=== PATIENT | female | born 1970 | race Caucasian/White ===

== ENCOUNTER 2018-11-13 22:41 | Observation (INO) ==
[2018-11-13] MEDS ORDERED: Isovue-370 500 ML INFUS..BTL IV ONE (23:59)
[2018-11-14] MEDS ORDERED: Ondansetron 4 MG/2 ML VIAL IVP STA (00:05)
[2018-11-14] MEDS ORDERED: *HR* Morphine 2 MG/ML SYRINGE IVP STA (00:05)
[2018-11-14 00:33] LABS: Bilirubin,Urine Negative (Negative); Blood,Urine Negative (Negative); Clarity,Urine Clear (Clear); Color,Urine Yellow (Yellow); Glucose,Urine (UA) Normal (Normal); Ketones,Urine Negative (Negative); Leukocyte Esterase,Urine Negative (Negative); Nitrite,Urine Negative (Negative); Protein,Urine 100 mg/dL (Neg-Trace); Specific Gravity,Urine < 1.005 (1.010-1.025); Urobilinogen,Urine Normal (Normal)
[2018-11-14 00:35] LABS: Bacteria,Urine None Seen per hpf (None-Few); Hyaline Casts,Urine None Seen per lpf (None-Few); RBC,Urine 0-3 per hpf (0-3); Squamous Epithelial Cell,Urine Moderate per lpf (None-Few); WBC,Urine 0-3 per hpf (0-3)
[2018-11-14 01:01] LABS: Troponin I < 0.03 ng/mL (< 0.04)
[2018-11-14 01:02] LABS: Alanine Aminotransferase 16 Units/L (7-52); Albumin 3.9 g/dL (3.5-5.7); Albumin/Globulin Ratio 1.4 (1.1-2.2); Alkaline Phosphatase 114 Units/L (34-104); Aspartate Amino Transferase 19 Units/L (13-39); BUN/Creatinine Ratio 12 (6-26); Bilirubin,Direct 0.2 mg/dL (0.0-0.2); Bilirubin,Indirect 0.3 mg/dL (0.0-1.2); Bilirubin,Total 0.5 mg/dL (0.3-1.0); Blood Urea Nitrogen 12 mg/dL (6-20); Carbon Dioxide 24 mEq/L (23-29); Chloride 103 mEq/L (98-107); Globulin 2.8 g/dL (2.4-3.5); Glucose 115 mg/dL (70-105); Lipase 26 Units/L (11-82); Osmolality,Calculated 283 (280-300); Potassium 3.9 mEq/L (3.5-5.1); Sodium 136 mEq/L (136-145); Total Protein 6.7 g/dL (6.4-8.9); eGFR For Non-African Americans 58 (> 60)
[2018-11-14 01:17] LABS: Basophils # 0.1 K/mcL (0.0-0.2); Basophils % 0.6 %; Eosinophils # 0.2 K/mcL (0.0-0.6); Eosinophils % 2.1 %; Hematocrit 43.6 % (35.3-44.9); Hemoglobin 13.1 g/dL (11.5-15.4); Immature Granulocytes % 0.3 % (0-4); Lymphocytes # 2.8 K/mcL (0.6-4.6); Lymphocytes % 29.3 %; Mean Corpuscular Hemoglobin 27.2 pg (28.0-33.3); Mean Corpuscular Volume 90.6 fL (83.0-100.0); Mean Platelet Volume 10.6 fL (9.4-12.4); Monocytes # 0.9 K/mcL (0.0-1.3); Monocytes % 9.4 %; Neutrophils # 5.5 K/mcL (1.6-8.9); Platelet Count 347 K/mcL (140-400); Red Blood Count 4.81 M/mcL (3.82-4.97); Red Cell Distribution Width 16.1 % (11.5-14.5); Segmented Neutrophils % 58.3 %
[2018-11-14] MEDS ORDERED: Furosemide 40 MG/4 ML VIAL IVP ONE (02:42)
--- NOTE | 2018-11-14 03:12 | Emergency Department Note ---
Disposition Clinical Impression: Elevated brain natriuretic peptide (BNP) level, Dyspnea on exertion, New onset of congestive heart failure Fluid overload Qualifiers: Hypervolemia type: unspecified Qualified Code(s): E87.70 - Fluid overload, unspecified Fatigue Qualifiers: Fatigue type: unspecified Qualified Code(s): R53.83 - Other fatigue Hypothyroidism Qualifiers: Hypothyroidism type: unspecified Qualified Code(s): E03.9 - Hypothyroidism, unspecified Disposition: Admitted As Inpatient Condition: Good Referrals: NONE,PCP [Primary Care Provider] - Forms: ED Satisfaction Letter, Work/School Release General Adult HPI - General Chief complaint: ED Abdominal Pain Stated complaint: abdominal pain/swelling Time Seen by Provider: 11/13/18 23:54 Source: patient Limitations: no limitations Nursing Notes Reviewed: Yes Vital Signs Reviewed: Yes - History of Present Illness HPI Narrative: Patient presents to the emergency department for multiple complaints. Most significant complaint is swelling in the lower extremities as well as the abdomen causing her to have pain of both these sites. Patient states that she started having problems proximal my 2 weeks ago when she was having upper respiratory symptoms diagnosed sinus infection and started on antibiotics. Patient states that she has increased swelling in her legs was started on Lasix by her PCP. No previous history of congestive heart failure or cardiac history. The patient states that she started having worsening fatigue as well as shortness of breath with exertion. On exam she has generalized abdominal tenderness as well as some mild distention with associated +2 pitting edema up to the bellybutton. Post 2 pitting edema throughout the legs. Patient will undergo further evaluation for possible CHF versus abdominal component. Pain Scale: 8 - Related Data Home Medications Medication Instructions Recorded Confirmed Levothyroxine Sodium [Synthroid] 200 mcg PO DAILY 08/04/18 08/04/18 metFORMIN [Glucophage] 1,000 mg PO HS 08/04/18 08/04/18 Previous Rx's Medication Instructions Recorded Albuterol Sulfate [Albuterol 2 puff IH Q4HR PRN #1 [email or web address] 08/04/18 Inhaler] Doxycycline 100 mg PO BID #13 capsule 08/04/18 Allergies Allergy/AdvReac Type Severity Reaction Status Date / Time levofloxacin [From Levaquin] AdvReac Muscle Pain Verified 08/04/18 19:29 All systems ED: reviewed and negative except as stated. Review of Systems: As Per HPI Constitutional: Denies: fever, chills ENT ED: Reports: congestion Cardiovascular: Reports: dyspnea on exertion. Denies: chest pain, palpitations Respiratory: Reports: dyspnea. Denies: cough, wheezes Gastrointestinal: Reports: abdominal pain, nausea. 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 No rebound or guarding. Musculoskeletal: Calves symmetric, nontender Skin: No rash, normal skin tone Neuro: Alert and Oriented to person, place, and time; No focal deficit, CN 2-12 symmetric and intact - General Limitations: no limitations General appearance: alert, in no apparent distress Course - Reevaluation(s) Reevaluation #1: Patient CT scan with abnormal lymph node of uncertain clinical significance and no other significant intra-abdominal pathology. The patient does not have any sign of ascites. Elevated BNP. Given the fact that she has swelling is been progressive from the lower extremities now since the abdomen as well as a elevated BNP and signs of vascular congestion on chest x-ray patient will be given Lasix and admitted for workup for possible new-onset CHF. - Consultations Consultation #1: Discussed with hospitalist. Patient accepted for admission. Vital Signs Temperature 98.4 F 11/13/18 23:16 Pulse Rate 103 11/13/18 23:16 Respiratory Rate 18 11/13/18 23:16 Blood Pressure 161/111 11/13/18 23:16 O2 Sat by Pulse Oximetry 94 11/13/18 23:16 Temperature 98.4 F 11/14/18 00:10 Pulse Rate 103 11/14/18 00:10 Respiratory Rate 18 11/14/18 00:10 Blood Pressure 161/111 11/14/18 00:10 O2 Sat by Pulse Oximetry 94 11/14/18 00:10 Oxygen Delivery Oxygen Delivery Room Air Medical Decision Making - Medical Records Medical records reviewed: Yes I reviewed the patient's medical records. - Lab Data Lab results reviewed: Yes I reviewed the patient's lab results. Result diagrams: 11/14/18 00:25 11/14/18 00:25 Lab Results 11/14/18 11/14/18 11/14/18 Range/Units 00:18 00:18 00:25 WBC 9.4 (4.3-11.1) K/mcL RBC 4.81 (3.82-4.97) M/mcL Hgb 13.1 (11.5-15.4) g/dL Hct 43.6 (35.3-44.9) % MCV 90.6 (83.0-100.0) fL MCH 27.2 L (28.0-33.3) pg MCHC 30.0 L (31.6-35.5) g/dL RDW 16.1 H (11.5-14.5) % Plt Count 347 (140-400) K/mcL MPV 10.6 (9.4-12.4) fL Immature Gran % 0.3 (0-4) % Seg Neutrophils % 58.3 % Lymphocytes % 29.3 % Monocytes % 9.4 % Eosinophils % 2.1 % Basophils % 0.6 % Neutrophils # 5.5 (1.6-8.9) K/mcL Lymphocytes # 2.8 (0.6-4.6) K/mcL Monocytes # 0.9 (0.0-1.3) K/mcL Eosinophils # 0.2 (0.0-0.6) K/mcL Basophils # 0.1 (0.0-0.2) K/mcL Sodium (136-145) mEq/L Potassium (3.5-5.1) mEq/L Chloride (98-107) mEq/L Carbon Dioxide (23-29) mEq/L BUN (6-20) mg/dL Creatinine (0.60-1.20) mg/dL Est GFR ( Amer) (> 60) Est GFR (Non-Af Amer) (> 60) BUN/Creatinine Ratio (6-26) Glucose (70-105) mg/dL Calculated Osmolality (280-300) Lactic Acid (0.5-2.2) mmol/L Calcium (8.6-10.3) mg/dL Total Bilirubin (0.3-1.0) mg/dL Direct Bilirubin (0.0-0.2) mg/dL Indirect Bilirubin (0.0-1.2) mg/dL AST (13-39) Units/L ALT (7-52) Units/L Alkaline Phosphatase (34-104) Units/L Troponin I (< 0.04) ng/mL B-Natriuretic Peptide (Less than 100) pg/mL Serum Total Protein (6.4-8.9) g/dL Albumin (3.5-5.7) g/dL Globulin (2.4-3.5) g/dL Albumin/Globulin Ratio (1.1-2.2) Lipase (11-82) Units/L TSH (0.340-5.600) mcIU/mL Urine Color Yellow (Yellow) Urine Clarity Clear (Clear) Urine pH 7.0 (5.0-8.0) pH Units Ur Specific [place] < 1.005 L (1.010-1.025) Urine Protein 100 H (Neg-Trace) mg/dL Urine Glucose (UA) Normal (Normal) mg/dL Urine Ketones Negative (Negative) mg/dL Urine Blood Negative (Negative) Urine Nitrite Negative (Negative) Urine Bilirubin Negative (Negative) Urine Urobilinogen Normal (Normal) mg/dL Ur Leukocyte Esterase Negative (Negative) Urine Microscopic RBC 0-3 (0-3) per hpf Urine Microscopic WBC 0-3 (0-3) per hpf Ur Squamous Epith Cells Moderate H (None-Few) per lpf Urine Bacteria None Seen (None-Few) per hpf Hyaline Casts None Seen (None-Few) per lpf Ur Culture Indicated? NO (NO) Urine Test Negative (Negative) 11/14/18 11/14/18 11/14/18 Range/Units 00:25 00:25 00:25 WBC (4.3-11.1) K/mcL RBC (3.82-4.97) M/mcL Hgb (11.5-15.4) g/dL Hct (35.3-44.9) % MCV (83.0-100.0) fL MCH (28.0-33.3) pg MCHC (31.6-35.5) g/dL RDW (11.5-14.5) % Plt Count (140-400) K/mcL MPV (9.4-12.4) fL Immature Gran % (0-4) % Seg Neutrophils % % Lymphocytes % % Monocytes % % Eosinophils % % Basophils % % Neutrophils # (1.6-8.9) K/mcL Lymphocytes # (0.6-4.6) K/mcL Monocytes # (0.0-1.3) K/mcL Eosinophils # (0.0-0.6) K/mcL Basophils # (0.0-0.2) K/mcL Sodium 136 (136-145) mEq/L Potassium 3.9 (3.5-5.1) mEq/L Chloride 103 (98-107) mEq/L Carbon Dioxide 24 (23-29) mEq/L BUN 12 (6-20) mg/dL Creatinine 1.01 (0.60-1.20) mg/dL Est GFR ( Amer) > 60 (> 60) Est GFR (Non-Af Amer) 58 L (> 60) BUN/Creatinine Ratio 12 (6-26) Glucose 115 H (70-105) mg/dL Calculated Osmolality 283 (280-300) Lactic Acid 1.0 (0.5-2.2) mmol/L Calcium 9.0 (8.6-10.3) mg/dL Total Bilirubin 0.5 (0.3-1.0) mg/dL Direct Bilirubin 0.2 (0.0-0.2) mg/dL Indirect Bilirubin 0.3 (0.0-1.2) mg/dL AST 19 (13-39) Units/L ALT 16 (7-52) Units/L Alkaline Phosphatase 114 H (34-104) Units/L Troponin I < 0.03 (< 0.04) ng/mL B-Natriuretic Peptide 586 H (Less than 100) pg/mL Serum Total Protein 6.7 (6.4-8.9) g/dL Albumin 3.9 (3.5-5.7) g/dL Globulin 2.8 (2.4-3.5) g/dL Albumin/Globulin Ratio 1.4 (1.1-2.2) Lipase 26 (11-82) Units/L TSH (0.340-5.600) mcIU/mL Urine Color (Yellow) Urine Clarity (Clear) Urine pH (5.0-8.0) pH Units Ur Specific [place] (1.010-1.025) Urine Protein (Neg-Trace) mg/dL Urine Glucose (UA) (Normal) mg/dL Urine Ketones (Negative) mg/dL Urine Blood (Negative) Urine Nitrite (Negative) Urine Bilirubin (Negative) Urine Urobilinogen (Normal) mg/dL Ur Leukocyte Esterase (Negative) Urine Microscopic RBC (0-3) per hpf Urine Microscopic WBC (0-3) per hpf Ur Squamous Epith Cells (None-Few) per lpf Urine Bacteria (None-Few) per hpf Hyaline Casts (None-Few) per lpf Ur Culture Indicated? (NO) Urine Test (Negative) 11/14/18 Range/Units 00:25 WBC (4.3-11.1) K/mcL RBC (3.82-4.97) M/mcL Hgb (11.5-15.4) g/dL Hct (35.3-44.9) % MCV (83.0-100.0) fL MCH (28.0-33.3) pg MCHC (31.6-35.5) g/dL RDW (11.5-14.5) % Plt Count (140-400) K/mcL MPV (9.4-12.4) fL Immature Gran % (0-4) % Seg Neutrophils % % Lymphocytes % % Monocytes % % Eosinophils % % Basophils % % Neutrophils # (1.6-8.9) K/mcL Lymphocytes # (0.6-4.6) K/mcL Monocytes # (0.0-1.3) K/mcL Eosinophils # (0.0-0.6) K/mcL Basophils # (0.0-0.2) K/mcL Sodium (136-145) mEq/L Potassium (3.5-5.1) mEq/L Chloride (98-107) mEq/L Carbon Dioxide (23-29) mEq/L BUN (6-20) mg/dL Creatinine (0.60-1.20) mg/dL Est GFR ( Amer) (> 60) Est GFR (Non-Af Amer) (> 60) BUN/Creatinine Ratio (6-26) Glucose (70-105) mg/dL Calculated Osmolality (280-300) Lactic Acid (0.5-2.2) mmol/L Calcium (8.6-10.3) mg/dL Total Bilirubin (0.3-1.0) mg/dL Direct Bilirubin (0.0-0.2) mg/dL Indirect Bilirubin (0.0-1.2) mg/dL AST (13-39) Units/L ALT (7-52) Units/L Alkaline Phosphatase (34-104) Units/L Troponin I (< 0.04) ng/mL B-Natriuretic Peptide (Less than 100) pg/mL Serum Total Protein (6.4-8.9) g/dL Albumin (3.5-5.7) g/dL Globulin (2.4-3.5) g/dL Albumin/Globulin Ratio (1.1-2.2) Lipase (11-82) Units/L TSH 15.316 H (0.340-5.600) mcIU/mL Urine Color (Yellow) Urine Clarity (Clear) Urine pH (5.0-8.0) pH Units Ur Specific [place] (1.010-1.025) Urine Protein (Neg-Trace) mg/dL Urine Glucose (UA) (Normal) mg/dL Urine Ketones (Negative) mg/dL Urine Blood (Negative) Urine Nitrite (Negative) Urine Bilirubin (Negative) Urine Urobilinogen (Normal) mg/dL Ur Leukocyte Esterase (Negative) Urine Microscopic RBC (0-3) per hpf Urine Microscopic WBC (0-3) per hpf Ur Squamous Epith Cells (None-Few) per lpf Urine Bacteria (None-Few) per hpf Hyaline Casts (None-Few) per lpf Ur Culture Indicated? (NO) Urine Test (Negative) - Radiology Data Radiology results reviewed: Yes I reviewed the patient's radiology results. Abdomen/Pelvis CT 11/14/18 00:00 IMPRESSION: 1. Small patchy area of focal airspace opacity in the right middle lobe could reflect atelectasis or pneumonia. Correlate with clinical and laboratory findings. 2. Trace abdominopelvic ascites may be reactive. 3. Otherwise no acute findings in the abdomen or pelvis. 4. The mildly prominent gastrohepatic lymph node measuring up to 12 mm in short axis is of questionable clinical significance. D/ / Gilma Ray MD / Gilma Ray MD Interpreting Provider: Gilma Ray MD Chest X-Ray 11/14/18 01:13 IMPRESSION: 1. Low lung volumes. 2. Mild central pulmonary vascular congestion without penny pulmonary edema. 3. Prominent cardiac silhouette. D/ / Gilma Ray MD / Gilma Ray MD Interpreting Provider: Gilma Ray MD - EKG Data EKG #1 EKG attestation: Yes I reviewed and interpreted this EKG. EKG results narrative: EKG shows sinus rhythm with heart rate of 94 [place] 141 QRS 89 QTC [address] No significant ST elevations or depressions. No EKG for comparison.
[2018-11-14] MEDS ORDERED: Naloxone 0.4 MG/ML INJ IVP PRN (08:22)
--- NOTE | 2018-11-14 10:59 | Internal Med History&Physical ---
Date of Encounter: 11/14/18 Time of Encounter: 10:57 Internal Medicine - H&P: HPI Chief complaint: Dyspnea, orthopnea Admitted From: Emergency Dept Plans for Post Hospital Care: Home History of present illness: Ms. Mary is a 48 year old female patient with a history of hypothyroidism, diabetes who presented to the ER with complaints of worsening shortness of breath especially with exertion along with symptoms of orthopnea. Her symptoms have been going on off and on for about 3 months now. She has been diagnosed w ith multiple episodes of bronchitis and pneumonia. She has completed treatment for that but continued to feel worse. Over the past 3 weeks she has noted worsening swelling in her legs going up into her lower abdomen. She denies any fevers or chills. She does have cough with sputum production which began yellow in the morning but then becomes whitish later. She denies any hemoptysis. Patient is a chronic smoker and currently smokes a pack over 2-3 days. Past Med Surg Social Fam HX - Past Medical History Attestation: Yes The following information was validated with the patient. Source: patient Medical history: diabetes, thyroid disease Additional medical history: INSULIN RESISTANCE Psychiatric history: no psych history - Past Surgical History Additional surgical history: LEFT KNEE SURGERY,RIGHT OVARY REMOVED - Social History Smoking Status: Current every day smoker Smokeless Tobacco Status: No Alcohol use: none Drug use: none - Family History Mother Hx Family Cardiac Disorders: Yes Hx Family Endocrine Disorder: Yes (DM) Father Hx Family Cardiac Disorders: Yes Internal Medicine - H&P: Meds Albuterol Sulfate [Albuterol Inhaler] 2 puff IH Q4HR PRN #1 [email or web address].ad 08/04/18 [Rx] Budesonide Neb [Pulmicort Neb] 0.25 mg IH BID 11/14/18 [History] Levothyroxine [Synthroid] 175 mcg PO DAILY 11/14/18 [History] Metformin HCl [Metformin HCl ER] 500 mg PO QPM 11/14/18 [History] Montelukast [Singulair] 10 mg PO DAILY 11/14/18 [History] Allergy/AdvReac Type Severity Reaction Status Date / Time levofloxacin [From Levaquin] AdvReac Muscle Pain Verified 08/04/18 19:29 All Systems PM: A 10-system review of systems was performed and is negative for pertinent findings except as documented above in the HPI. - Constitutional Constitutional: malaise, no chills, no fever(s), no night sweats - EENT Eyes: no change in vision, no discharge, no pain, no photophobia Ears: no ear discharge, no ear pain, no tinnitus Nose, mouth and throat: no dysphagia, no nasal discharge, no neck pain, no sore throat - Cardiovascular Cardiovascular ROS IM: dyspnea, dyspnea on exertion, orthopnea, no chest pain, no diaphoresis, no lightheadedness, no palpitations, no syncope - Respiratory Respiratory: excessive phlegm production, no cough, no dyspnea, no wheezing - Gastrointestinal Gastrointestinal: no abdominal pain, no diarrhea, no hematemesis, no hematochezia, no melena, no nausea, no vomiting - Genitourinary Genitourinary: no change in urinary stream, no dysuria, no flank pain, no hematuria - Musculoskeletal Musculoskeletal ROS IM: no numbness, no tingling - Integumentary Integumentary IM: no rash, no unusual bruising - Neurological Neurological ROS: no confusion, no convulsions, no focal weakness, no numbness, no tingling, no tremor(s) - Hematologic/Lymphatic Hematologic/Lymphatic: no easy bruising - Constitutional Vitals: Temp Pulse Resp BP Pulse Ox 98.4 F 85 20 116/72 95 11/14/18 05:38 11/14/18 05:38 11/14/18 05:38 11/14/18 05:38 11/14/18 05:43 General appearance: Present: cooperative, mild distress, A&O X 3, pleasant, answers questions appropriately Exam: . - Eye Eye exam: Present: EOMI, conjuntiva pink, sclera anicteric - ENT ENT exam: Present: mucous membranes moist - Neck Neck exam general surgery: Present: supple, trachea midline. Absent: lymphadenopathy - Respiratory Respiratory exam: Present: prolonged expiratory phase, wheezes. Absent: accessory muscle use, rales, rhonchi - Cardiovascular Cardiovascular exam: Present: RRR, +S1, +S2. Absent: diastolic murmur, gallop, rubs, systolic murmur - GI/Abdominal GI/Abdominal exam: Present: normal bowel sounds, soft, no peritoneal signs. Absent: distended, tenderness Additional comments: edema noted on lower abdominal wall with blanching erythema - Extremities Exam Extremities exam: Present: pedal edema (1+), warm, radial pulses palpable and symmetrical. Absent: calf tenderness, cyanotic - Neurological Exam Neurological exam: Present: alert, CN II-XII intact, oriented X3, no focal deficits, strengths equal and symetr throughout. Absent: facial droop, speech deficit - Skin Skin exam: Present: dry, intact Internal Med - H&P Results - Labs CBC & Chem 7: 11/14/18 00:25 11/14/18 00:25 Labs: Short CBC 11/14/18 Range/Units 00:25 WBC 9.4 (4.3-11.1) K/mcL Hgb 13.1 (11.5-15.4) g/dL Hct 43.6 (35.3-44.9) % Plt Count 347 (140-400) K/mcL Neutrophils # 5.5 (1.6-8.9) K/mcL BMP 11/14/18 00:25 Sodium 136 Potassium 3.9 Chloride 103 Carbon Dioxide 24 BUN 12 Creatinine 1.01 Glucose 115 H Calcium 9.0 Cardiac Enzymes 11/14/18 Range/Units 00:25 Troponin I < 0.03 (< 0.04) ng/mL Liver Function 11/14/18 Range/Units 00:25 Total Bilirubin 0.5 (0.3-1.0) mg/dL Direct Bilirubin 0.2 (0.0-0.2) mg/dL AST 19 (13-39) Units/L ALT 16 (7-52) Units/L Alkaline Phosphatase 114 H (34-104) Units/L Albumin 3.9 (3.5-5.7) g/dL Urine 11/14/18 Range/Units 00:18 Urine Color Yellow (Yellow) Urine Clarity Clear (Clear) Urine pH 7.0 (5.0-8.0) pH Units Ur Specific [place] < 1.005 L (1.010-1.025) Urine Protein 100 H (Neg-Trace) mg/dL Urine Glucose (UA) Normal (Normal) mg/dL - EKG Data EKG comments: 11/14/18 10:59 EKG shows normal sinus rhythm with signs of biatrial enlargement. QTC is 504 - Impressions ITS Impressions Abdomen/Pelvis CT 11/14/18 00:00 IMPRESSION: 1. Small patchy area of focal airspace opacity in the right middle lobe could reflect atelectasis or pneumonia. Correlate with clinical and laboratory findings. 2. Trace abdominopelvic ascites may be reactive. 3. Otherwise no acute findings in the abdomen or pelvis. 4. The mildly prominent gastrohepatic lymph node measuring up to 12 mm in short axis is of questionable clinical significance. D/ / 11/14/2018 07:24:54 Gilma Ray MD / noah Interpreting Provider: Gilma Ray MD Chest X-Ray 11/14/18 01:13 IMPRESSION: 1. Low lung volumes. 2. Mild central pulmonary vascular congestion without penny pulmonary edema. 3. Prominent cardiac silhouette. D/ /14/2018 07:25:23 Gilma Ray MD / noah Interpreting Provider: Gilma Ray MD - Assessment and plan (1) New onset of congestive heart failure Current Visit: Yes Status: Suspected Assessment and plan: Patient presenting with symptoms of orthopnea and lower extremity edema with worsening dyspnea on exertion. Concern for new onset congestive heart failure. Will obtain 2-D echocardiogram. Continue Lasix. Monitor with telemetry. Patient did respond well with Lasix in the ER. She reports that her breathing has improved. High risk for complications. (2) Diabetes mellitus Current Visit: Yes Status: Chronic Assessment and plan: Monitor blood sugars. Sliding scale insulin. Diabetic diet. Qualifiers: Diabetes mellitus type: type 2 Diabetes mellitus senior care insulin use: without senior care use Diabetes mellitus complication status: with hyperglycemia Qualified Code(s): E11.65 - Type 2 diabetes mellitus with hyperglycemia (3) Hypothyroidism Current Visit: Yes Status: Chronic Assessment and plan: Continue Synthroid. TSH is 15.3. Qualifiers: Hypothyroidism type: other Qualified Code(s): E03.8 - Other specified hypothyroidism (4) DVT prophylaxis Current Visit: Yes Status: Acute Assessment and plan: With subcutaneous heparin (5) COPD (chronic obstructive pulmonary disease) Current Visit: Yes Status: Acute Assessment and plan: Patient is a chronic smoker and does have cough with sputum production. Concern for underlying COPD. Continue bronchodilators. Recommend outpatient follow-up with pulmonology for lung function testing. Qualifiers: COPD type: chronic bronchitis Chronic bronchitis type: simple Qualified Code(s): J41.0 - Simple chronic bronchitis - Time Spent With Patient Total time spent is greater than 50% in coordination of care (as documented) at patient's floor/unit and/or counseling patient:
[2018-11-14] MEDS: Aspirin Enteric Coated 81 MG Tablet PO SCH (13:02)
[2018-11-14] MEDS: *HR* Heparin 5,000 UNIT/ML VIAL SQ SCH (17:38)
[2018-11-14] MEDS: Budesonide Neb 0.25 MG/2 ML IH SCH (22:33)
[2018-11-15 05:45] LABS: Basophils # 0.1 K/mcL (0.0-0.2); Basophils % 0.6 %; Eosinophils # 0.2 K/mcL (0.0-0.6); Eosinophils % 2.2 %; Hematocrit 47.9 % (35.3-44.9); Hemoglobin 13.9 g/dL (11.5-15.4); Immature Granulocytes % 0.2 % (0-4); Lymphocytes # 2.2 K/mcL (0.6-4.6); Lymphocytes % 26.5 %; Mean Corpuscular Hemoglobin 27.1 pg (28.0-33.3); Mean Corpuscular Volume 93.6 fL (83.0-100.0); Mean Platelet Volume 10.5 fL (9.4-12.4); Monocytes # 0.8 K/mcL (0.0-1.3); Monocytes % 9.9 %; Neutrophils # 5.1 K/mcL (1.6-8.9); Platelet Count 345 K/mcL (140-400); Red Blood Count 5.12 M/mcL (3.82-4.97); Red Cell Distribution Width 16.3 % (11.5-14.5); Segmented Neutrophils % 60.6 %
[2018-11-15 06:09] LABS: BUN/Creatinine Ratio 15 (6-26); Blood Urea Nitrogen 16 mg/dL (6-20); Calcium 9.3 mg/dL (8.6-10.3); Carbon Dioxide 28 mEq/L (23-29); Chloride 102 mEq/L (98-107); Chol/HDL Ratio 6.6 (0-4.9); Cholesterol 164 mg/dL (< 200); Glucose 108 mg/dL (70-105); HDL Cholesterol 25 mg/dL (40-59); LDL Cholesterol,Calculated 112 mg/dL (0-99); Osmolality,Calculated 284 (280-300); Potassium 4.7 mEq/L (3.5-5.1); Sodium 136 mEq/L (136-145); Triglycerides 134 mg/dL (< 150); eGFR For Non-African Americans 54 (> 60)
[2018-11-15] MEDS: *HR* Heparin 5,000 UNIT/ML VIAL SQ SCH ×2 (06:21→17:06)
--- NOTE | 2018-11-15 08:25 | Cardiology Consult Note ---
Addendum entered and electronically signed by Bradley Medrano CNP 11/15/18 12:39: Edit to TTE details. EF is 35-40%. Original Note: <Bradley Medrano - Last Filed: 11/15/18 08:51> Date of Encounter: 11/15/18 Time of Encounter: 08:22 Assessment and Plan (1) New onset of congestive heart failure Current Visit: Yes Status: Suspected EF found to be 30-35% on TTE, moderate segmental dysfunction. Unclear chronicity. Pt reports ongoing dyspnea x 3 months, orthopnea and BLE edema that started in r ecent weeks. BNP 586, CXR mild central pulmonary vascular congestion. On IV Lasix 20mg daily. Agree with diuresis. Recommend strict I/Os, Na and fluid restriction, daily weights. Need to r/o ischemic cause. Recommend LHC. R/B/A discussed. Pt agrees to proceed. (2) Cardiomyopathy Current Visit: Yes Status: Acute TTE EF 30-35%, moderate segmental dysfunction. New diagnosis. ICMP vs NICMP. Risk factors for CAD include DM, tobacco abuse. Recommend LHC to r/o ischemic cause. R/B/A discussed. Pt agrees. BP marginal this AM. Will start low dose BB--Toprol XL 25mg daily. Plan to add ACEi prior to d/c if BP will tolerate. Qualifiers: Cardiomyopathy type: unspecified Qualified Code(s): I42.9 - Cardiomyopathy, unspecified (3) Hypothyroidism Current Visit: Yes Status: Chronic TSH 15.316. Management per primary team. Qualifiers: Hypothyroidism type: other Qualified Code(s): E03.8 - Other specified hypothyroidism Discussion w patient/family: The assessment and plan as outlined above was discussed with the patient and/or family members who expressed understanding and agreement. All questions were answered. Thank you for involving us in the care of your patient. Please call with any questions. I will discuss all the above with Dr. Tan and make changes as necessary. History of Present Illness Consult date: 11/15/18 Requesting physician: Chemo Hawkins Consult reason: CMP Chief complaint: dyspnea History of present illness: Ms. Mary is a 48 year old female with PMH of hypothyroidism, DM, tobacco abuse, who presented to the ER with complaints of worsening shortness of breath over the past 3 months and associated orthopnea. She reports recently completing her 4th round of antibiotics over recent months for diagnosed episodes of bronchitis and pneumonia. She continues to feel worse. Over the past 3 weeks she has noted worsening swelling in her legs going up into her lower abdomen. She denies any fevers or chills. She does have cough with sputum production, yellow in the morning but then becomes whitish later. TTE was obtained and found to have reduced EF of 35-40%, moderate segmental dysfunction. Cardiology consulted for further recs. Pt denies chest pain or any known hx of CAD. TSH 15.316. Past Med Surg Social Fam HX - Past Medical History Medical history: diabetes, thyroid disease Additional medical history: INSULIN RESISTANCE Psychiatric history: no psych history - Past Surgical History Additional surgical history: LEFT KNEE SURGERY,RIGHT OVARY REMOVED - Social History Smoking Status: Current every day smoker Smokeless Tobacco Status: No Alcohol use: none Drug use: none - Family History Mother Hx Family Cardiac Disorders: Yes Hx Family Endocrine Disorder: Yes (DM) Father Hx Family Cardiac Disorders: Yes Medications and Allergies Albuterol Sulfate [Albuterol Inhaler] 2 puff IH Q4HR PRN #1 [email or web address] 08/04/18 [Rx] Budesonide Neb [Pulmicort Neb] 0.25 mg IH BID 11/14/18 [History] Levothyroxine [Synthroid] 175 mcg PO DAILY 11/14/18 [History] Metformin HCl [Metformin HCl ER] 500 mg PO QPM 11/14/18 [History] Montelukast [Singulair] 10 mg PO DAILY 11/14/18 [History] Allergy/AdvReac Type Severity Reaction Status Date / Time levofloxacin [From Levaquin] AdvReac Muscle Pain Verified 08/04/18 19:29 All Systems Review: The remainder of the systems were reviewed and are negative - Cardiovascular Cardiovascular: as per HPI, dyspnea at rest, dyspnea on exertion, orthopnea - Respiratory Respiratory: cough, dyspnea Physical Examination Vital Signs, Last 4 Hours Temp Pulse Resp BP Pulse Ox 11/15/18 06:36 97.3 F L 86 16 104/68 90 Vital Signs Temp Pulse Resp BP Pulse Ox 11/15/18 06:36 97.3 F L 86 16 104/68 90 11/15/18 04:14 97.6 F 84 16 124/86 94 11/14/18 23:25 98.5 F 85 16 140/80 93 11/14/18 22:39 17 94 11/14/18 22:05 98.9 F 89 16 126/87 92 11/14/18 17:33 97.7 F 89 16 99/62 90 11/14/18 12:01 97.4 F L 82 17 109/74 93 Intake and Output 11/14/18 11/15/18 11/15/18 23:59 07:59 15:59 Intake Total 300 / 300 Output Total 500 / 500 Balance -200 / -200 Intake: Oral 300 / 300 Output: Urine 500 / 500 Other: Meal Dinner Percent of Meal Consumed 80% Weight 120.2 kg General: Conversant, No Apparent Distress HEENT: Atraumatic, Normocephaly, Mucus Membranes Moist Neck: Normal carotid pulses Cardiac: Reg Rate and Rhythm, Normal S1 and S2, No Murmur Lungs: Normal Breath Sounds, No Wheeze, Rales, Rhonchi Neuro: Alert and responsive, No focal deficits noted Abdomen: Soft, Non-Tender Skin: No rashes noted on visualized skin Musculoskeletal: No Chest Wall Tenderness Extremities: Other (mild BLE edema) Results 11/15/18 04:59 11/15/18 04:59 Lab Results 11/15/18 11/15/18 04:59 04:59 WBC 8.4 Hgb 13.9 Hct 47.9 H Plt Count 345 Sodium 136 Potassium 4.7 Chloride 102 Carbon Dioxide 28 BUN 16 Creatinine 1.08 Glucose 108 H Calcium 9.3 Short CBC 11/15/18 Range/Units 04:59 WBC 8.4 (4.3-11.1) K/mcL Hgb 13.9 (11.5-15.4) g/dL Hct 47.9 H (35.3-44.9) % Plt Count 345 (140-400) K/mcL Neutrophils # 5.1 (1.6-8.9) K/mcL BMP 11/15/18 Range/Units 04:59 Sodium 136 (136-145) mEq/L Potassium 4.7 (3.5-5.1) mEq/L Chloride 102 (98-107) mEq/L Carbon Dioxide 28 (23-29) mEq/L BUN 16 (6-20) mg/dL Creatinine 1.08 (0.60-1.20) mg/dL Glucose 108 H (70-105) mg/dL Calcium 9.3 (8.6-10.3) mg/dL Impressions Abdomen/Pelvis CT 11/14/18 00:00 IMPRESSION: 1. Small patchy area of focal airspace opacity in the right middle lobe could reflect atelectasis or pneumonia. Correlate with clinical and laboratory findings. 2. Trace abdominopelvic ascites may be reactive. 3. Otherwise no acute findings in the abdomen or pelvis. 4. Mildly prominent gastrohepatic lymph node measuring up to 12 mm in short axis is of questionable clinical significance. D/ / 11/14/2018 07:24:54 Gilma Ray MD / noah Interpreting Provider: Gilma Ray MD Chest X-Ray 11/14/18 01:13 IMPRESSION: 1. Low lung volumes. 2. Mild central pulmonary vascular congestion without penny pulmonary edema. 3. Prominent cardiac silhouette. D/ / 11/14/2018 07:25:23 Gilma Ray MD / noah Interpreting Provider: Gilma Ray MD Echocardiogram 11/14/18 08:23 Impressions: LVEF 35-40%. Moderate segmental left ventricular systolic dysfunction. Mild left ventricular diastolic dysfunction. Normal right ventricular structure and function. Mild mitral regurgitation. Mild tricuspid regurgitation. Moderate pulmonic regurgitation. Mild pulmonary hypertension. Ordering physician notified via Spout. Left Ventricular Wall Motion: Rest Echo Findings The mid inferior, basal inferior, mid anterior, basal anterior, mid inferior septal, basal inferior septal, mid anterior lateral, basal anterior lateral, mid anterior septal, mid inferior lateral, basal anterior septal and basal inferior lateral topete were hypokinetic. All other wall segments showed normal motion. Findings: Study Quality * Technically adequate exam. ECG Findings * Normal sinus rhythm. Left Ventricle * LVEF 35-40%. * Normal LV chamber size and wall thickness. * Moderate segmental left ventricular systolic dysfunction. * Mild left ventricular diastolic dysfunction. * Definity echo contrast was not used. Right Ventricle * Normal right ventricular structure and function. Left Atrium * Normal left atrial size. Right Atrium * Normal right atrial size. Interatrial Septum * Interatrial septum not well evaluated. * No evidence of PFO by color Doppler. Aortic Valve * Aortic valve not well visualized. * No aortic stenosis. * Trace aortic regurgitation. Mitral Valve * Mildly calcified mitral valve leaflets. * Moderately thickened mitral valve leaflets. * Mild mitral regurgitation. * No mitral stenosis. Tricuspid Valve * Normal tricuspid valve structure. * No tricuspid stenosis. * Mild tricuspid regurgitation. * Estimated RVSP is 46 mmHg. * Estimated RA pressure is 15 mmHg. * Mild pulmonary hypertension. Pulmonic Valve * Pulmonic valve is not well visualized. * No pulmonic stenosis. * Moderate pulmonic regurgitation. Aorta * Normally sized aortic root. Pericardium * The pericardium appears normal. IVC * The IVC is dilated. * < 50% respiratory change. Active Medications Albuterol Sulfate (Albuterol Inhaler) 2 puff IH Q4HR PRN PRN Reason: Shortness Of Breath/Wheezing Stop: 05/16/19 10:31 Aspirin (Aspirin Ec) 81 mg PO DAILY [facility] Stop: 05/16/19 09:01 Last Admin: 11/14/18 13:02 Dose: 81 mg Budesonide (Pulmicort Neb) 0.25 mg IH BIDR [facility] Stop: 05/16/19 22:01 Last Admin: 11/14/18 22:33 Dose: 0.25 mg Furosemide (Lasix) 20 mg IVP DAILY [facility] Stop: 05/17/19 09:01 Heparin Sodium (Porcine) (Heparin) 5,000 unit SQ Q12HCO [facility] Stop: 05/16/19 18:01 Last Admin: 11/15/18 06:21 Dose: 5,000 unit Levothyroxine Sodium (Synthroid) 175 mcg PO 0630 [facility] Stop: 05/16/19 10:46 Last Admin: 11/15/18 06:21 Dose: 175 mcg Montelukast Sodium (Singulair) 10 mg PO DAILY [facility] Stop: 05/17/19 09:01 Naloxone HCl (Narcan) 0.4 mg IVP Q2MIN PRN PRN Reason: SEE COMMENTS Stop: 05/16/19 08:23 - Imaging and Cardiology Echo: report reviewed - EKG Interpretation EKG results cardiology: personally reviewed (SR), other (12 hr tele AVG HR 87, SR, no significant pauses or arrhythmias noted.) Consult Discharge Plan - Plan Referrals: NONE,PCP [Primary Care Provider] - <Svitlana Tan - Last Filed: 11/15/18 18:39> Date of Encounter: 11/15/18 - Attending Attestation Patient was seen and evaluated independently by me. Findings, assessment and plan were discussed at length with patient, questions answered. Agree with nurse practitioner's/resident's documentation. Addition as follows, 48yoCF ho DM, tobacco, hypothyroidism p/w ALBARRAN and LE edema 3 months. ECG no ischemic changes, TTE EF 35-40%, preserved apical motion. LHC no ob structive CAD. Symptoms improved on diuresis. A: ADHF, HFrEF, new diagnosis, NICMP, moderate fluid overload Hypothyroidism DM P: diureis till euvolemia BB, ACEi cardiology clinic f/u, repeat TTE 3 months, w/u for NICMP, r/o cardiac amyloidosis Svitlana Tan MD, PhD Assessment and Plan Discussion w patient/family: The assessment and plan as outlined above was discussed with the patient and/or family members who expressed understanding and agreement. All questions were answered. Thank you for involving us in the care of your patient. Please call with any questions. History of Present Illness History of present illness: Ms. Mary is a 48 year old female All Systems Review: The remainder of the systems were reviewed and are negative Physical Examination Vital Signs, Last 4 Hours Temp Pulse Resp BP Pulse Ox 11/15/18 16:08 97.4 F L 81 18 115/80 96 11/15/18 15:20 98.0 F 85 18 120/68 96 11/15/18 14:40 83 18 118/81 96 Results 11/15/18 04:59 11/15/18 04:59 Lab Results 11/15/18 11/15/18 04:59 04:59 WBC 8.4 Hgb 13.9 Hct 47.9 H Plt Count 345 Sodium 136 Potassium 4.7 Chloride 102 Carbon Dioxide 28 BUN 16 Creatinine 1.08 Glucose 108 H Calcium 9.3
[2018-11-15] MEDS: Metoprolol XL (24 HR) Succ 25 MG TAB.ER.24H PO SCH (09:20)
[2018-11-15] MEDS: Aspirin Enteric Coated 81 MG Tablet PO SCH (09:20)
[2018-11-15] MEDS: Furosemide 20 MG/2 ML VIAL IVP SCH (09:20)
[2018-11-15 09:39] LABS: Estimated Average Glucose 154 mg/dl
[2018-11-15] MEDS ORDERED: *HR* Dextrose 50 % in Water (Syg) 50 ML SYRINGE IVP PRN (10:36)
[2018-11-15] MEDS ORDERED: D5% in Water 1,000 ML IVC PRN (10:36)
[2018-11-15] MEDS ORDERED: Dextrose Gel 15 GM/37.5 ML TUBE PO PRN ×2 (10:36)
[2018-11-15] MEDS ORDERED: *HR* Heparin 10,000 UNIT/10 ML VIAL ONE (10:42)
[2018-11-15] MEDS ORDERED: ISOVUE-370 200 ML INFUS..BTL ONE (10:42)
[2018-11-15] MEDS ORDERED: Nitroglycerin 1,000 MCG/10 ML VIAL IV ONE (10:42)
[2018-11-15] MEDS ORDERED: Heparin 1,000 UNITS/500 mL 500 ML ONE (10:42)
[2018-11-15] MEDS ORDERED: 0.9 % Sodium Chloride 1,000 ML ONE ×2 (10:42→12:07)
[2018-11-15] MEDS: Insulin LISPRO 300 UNITS/3 ML VIAL SQ SCH ×3 (10:57→21:00)
[2018-11-15] MEDS: Budesonide Neb 0.25 MG/2 ML IH SCH ×2 (11:06→22:16)
[2018-11-15] MEDS ORDERED: *HR* Midazolam HCl 2 MG/2 ML VIAL ONE ×2 (12:07→12:31)
--- NOTE | 2018-11-15 12:42 | Event Note ---
Date of Encounter: 11/15/18 Time of Encounter: 12:40 - Cardiology Event Note TTE EF 35-40%. Underwent LHC to r/o ischemic cause. LHC revealed normal coronaries--NICMP. Recommend BB, ACEi. Currently on IV Lasix 20mg daily. Transition to PO prior to d/c. Recommend outpt referral to [facility] for cardiac MRI to evaluate for any identifiable cause of CMP. Cardiology signing off. Reconsult PRN. Will coordinate outpt follow-up in 2-3 weeks.
[2018-11-15] MEDS ORDERED: 0.9 % Sodium Chloride 1,000 ML IVC SCH (12:45)
--- NOTE | 2018-11-15 12:45 | Pre-Sedation Evaluation ---
Pre-sedation evaluation - Pre-sedation checklist Date of procedure: 11/15/18 Procedure: [facility] Recent Vitals: Last Vital Signs Temp 98.3 F 11/15/18 10:31 Pulse 91 11/15/18 10:31 Resp 18 11/15/18 11:10 BP 109/74 11/15/18 10:31 Pulse Ox 96 11/15/18 11:10 H&P (including ROS) documented in medical record: Yes Previous reaction to sedatives/anesthetics: No Dietary Status: NPO after Midnight Airway Assessment: Patient can open mouth completely, TMJ function normal Dentition: full dentition Possible difficult airway: No If Yes;: History of difficult intubation ASA Classification *see protocol: CLASS III-Severe systemic disease Plan of Care: Pt appropriate candidate for procedure/moderate/conscious sedation, Risks/benefits of procedure/sedation discussed w/ patient/family, If not NPO; Risk of intake outweiged by necessity to perform procedure Cardiac Registry (Cardio Only) - Functional Capacity Functional Capacity: >=4 METS with symptoms - Clincal Frailty Scale Clinical Frailty Scale: Vulnerable
--- NOTE | 2018-11-15 13:05 | Invasive Diagnostic Lab Proc ---
Name: Maya Mary Date of Study: 11/15/2018 Date: 1970 Ht: 65.0in Medical Record#: [id number] Age: 48 Wt: 264.55lb Gender: Female BSA: 2.23 Order #: [id number] BMI: 44.08 Physicians Procedure Physician: Spencer Ignacio DO Referring MD: Referring MD: Staff Name Position Time In Sites, Madhavi RT (R) Monitor 12:15 PM Annabelle Andre RT (R) Scrub 12:16 PM Alis Drew RN Grants Administrator 12:16 PM Yoon Martinez RN Monitor 12:24 PM Indications Indication cardiomyopathy Procedures Performed Procedure L HRT ARTERY/VENTRICLE ANGIO Pre-Procedure Checklist Informed consent is complete signed and on chart. H&P is on chart. ID band is on and ID verified with patient. Patient NPO for procedure The procedure was described for the patient and questions were answered. Blood Pressure: 104/68 ECG is on chart. Rhythm: NSR Plan of Care Patient will tolerate the procedure without complications. Adequate level of comfort will be maintained. Hemodynamics will remain stable Patient will recover from procedure without complications. Respiratory function will be maintained. Cardiac rhythm will remain stable. Patient temperature will be maintained. Patient and/or family have verbalized understanding of the procedure. Patient Education Chief Complaint/Reason for Test: Cardiac Cath Developmental Category: Adult (18-64 years) Developmentally Appropriate for Age: Yes Learning Barriers: None Education Needs: Procedure Education Method: Verbal Information Taught: Cardiac Cath Educational Evaluation: Able to repeat information Intravenous Access Time IV Size Location DC'd Fluid/Drip Rate Units RN 11:13 AM 18g 1 11/19" Patent On Arrival Rt Antecubital 25 ml/hr Alis Drew RN Allergies levofloxacin Vital Signs Time BP (mmHg) HR (bpm) O2 Sat. RR (bpm) LOC 11:13 AM 104 / 68 86 92 % 16 5 = Fully awake and oriented or at pre-proc level 12:21 PM / % 4 = Oriented but drowsy 12:21 PM / % 5 = Fully awake and oriented or at pre-proc level 12:37 PM / % 5 = Fully awake and oriented or at pre-proc level 12:13 PM 123 / 86 79 92 % 24 12:18 PM 131 / 83 84 92 % 40 12:22 PM 146 / 90 87 91 % 35 12:27 PM 148 / 84 85 94 % 27 12:34 PM 138 / 81 87 91 % 27 12:38 PM 136 / 88 90 93 % 21 12:42 PM 134 / 88 88 90 % 18 Procedural Medications Time Medication Dose Units Method Given By 12:17 PM Oxygen 2 L/min nasal cannula Alis Drew RN 12:17 PM Versed 2 mg Intravenous Alis Drew RN 12:17 PM Oxygen 4 L/min nasal cannula Alis Drew RN 12:25 PM Oxygen 4 L/min nasal cannula Alis Drew RN 12:26 PM Lidocaine 2% 10 ml Subcutaneous Spencer Ignacio, DO 12:31 PM Versed 1 mg Intravenous Alis Drew RN ASA Classification: CLASS III- Severe systemic disease (i.e. prior AMI, diabetes with vascular complications, morbid obesity) Joseph Score Preprocedure Postprocedure Activity 2- Moves 4 extremities sustained head lift Activity 2- Moves 4 extremities sustained head lift Circulation 2- SBP +/= 20 points of pre-anesthetic level Circulation 2- SBP +/= 20 points of pre-anesthetic level Consciousness 2- Awake and alert oriented x 3 Consciousness 2- Awake and alert oriented x 3 O2 Saturation 2- Able to maintain O2 satruation of 92% on room air O2 Saturation 2- Able to maintain O2 satruation of 92% on room air Respiratory 2- Able to deep breathe and cough well Respiratory 2- Able to deep breathe and cough well Total Score 10 Total Score 10 Contrast Agent: Isovue Diagnostic Contrast: 75 ml Total Contrast: 75 ml Fluoro Dose: 49 mGy Procedure Log Time Note Enter By 12:11 PM CathStat 12:11 PM Vitals capture started with the following parameters, Patient=Adult, Interval=5 min, Initial Klgjvkkn=315 mmHg, Deflation Rate=3 mmHg, Cuff placed on Right Arm 12:13 PM HR=79 bpm, HEFI=007/86 mmhg, SpO2=92 %, Resp=24 B/min 12:15 PM Pt arrived to incinerator plant laborer 1 at 12:15 [email or web address] 12:16 PM Madhavi Hays RT (R) Position: Monitor Time in: 12:15 [email or web address] 12:16 PM Annabelle Andre RT (R) Position: Scrub Time in: 12:16 [email or web address] 12:16 PM Alis Drew RN Position: Grants Administrator Time in: 12:16 [email or web address] 12:16 PM Patient charges- Angio tray pack, Navilyst 3mm J, Pulse Oximetry and ACIST tubing and transducer [email or web address] 12:16 PM Case Delayed No [email or web address] 12:16 PM Physician arrived 12:16 [email or web address] 12:16 PM Meet and greet completed [email or web address] 12:16 PM Sign in performed according to hospital policy. Informed consent was obtained. [email or web address] 12:16 PM Procedure start 12:16 [email or web address] 12:16 PM Hair removed from procedure site in holding area using clippers. Bilateral groin prepped with Chloraprep by Madhavi Hays RT (R), then patient was draped. Skin intact. [email or web address] 12:17 PM Time: 12:17 Oxygen on at 2 L/min per nasal cannula by Alis Drew RN tsites 12:17 PM Time: 12:17 Versed 2 mg Intravenous Given by Alis Drew RN tsites 12:17 PM Time: 12:17 Oxygen on at 4 L/min per nasal cannula by Alis Drew RN tsites 12:18 PM HR=84 bpm, OAWE=775/83 mmhg, SpO2=92.0 %, Resp=40 B/min 12:18 PM Pressure channel 2 zeroed. 12:18 PM Recorded ECG: HR=87 Condition=Condition 1 12:21 PM Time: 12:21 Patient comfortable and pain free: Yes tsites 12:21 PM Time: 12:21LOC: 4 = Oriented but drowsy tsites 12:21 PM Clinical Presentation: Unstable angina tsites 12:22 PM HR=87 bpm, QJJD=829/90 mmhg, SpO2=91.0 %, Resp=35 B/min, EtCO2=40 mmHg, Comment=SR 12:24 PM Yoon Martinez RN Position: Monitor Time in: 12:24 to relieve Madhavi Hays RT (R) tsites 12:25 PM Time out was performed according to hospital policy. Conscious sedation and anesthesia was achieved (see medication log with in this report above) tsites 12:25 PM Time: 12:25 Oxygen on at 4 L/min per nasal cannula by Alis Drew RN tsites 12: PM Time: 12: 10 ml Lidocaine 2% to right groin Subcutaneous Given by Spencer Ignacio DO tsites 12:27 PM Micro-Introducer Kit utilized for sheath placement tsites 12:27 PM HR=85 bpm, YPDR=209/84 mmhg, SpO2=94.0 %, Resp=27 B/min, EtCO2=40 mmHg, Comment=SR 12:28 PM 0.035 145cm Navilyst 3mmJ wire [id number] tsites 12:28 PM Access obtained by percutaneous puncture. 6Fr 10cm [place]um[place] sheath placed in right Femoral artery. [id number] tsites 12:28 PM 5Fr FR 4 catheter inserted over the wire [facility] tsites 12:28 PM Catheter crossed the aortic valve and was selectively placed in the left ventricle. Pressures recorded on pullback for left heart catheterization. tsites 12:28 PM Bolus angiogram of left Ventricle complete: hand injected tsites 12:29 PM Recorded Pressure: LV, HR=87, Condition=Condition 1 (Left Ventricle) LV 124/13/22 12:29 PM Recorded Pressure: LV, Ao, HR=88, Condition=Condition 1 (Left Ventricle) LV 126/14/26, (Aorta) Ao 131/93/110 12:30 PM RCA angiography performed in multiple views. tsites 12:30 PM Catheter removed tsites 12:30 PM 5Fr FL 4 catheter inserted over the wire [facility] tsites 12:30 PM LCA angiography performed in multiple views. tsites 12:31 PM Time: 12:31 Versed 1 mg Intravenous Given by Alis Drew RN tsites 12:32 PM Recorded Pressure: Ao, HR=86, Condition=Condition 1 (Aorta) Ao 126/88/104 12:33 PM Catheter removed tsites 12:33 PM Bolus angiogram of right Femoral complete: hand injected tsites 12:34 PM HR=87 bpm, TMNE=509/81 mmhg, SpO2=91.0 %, Resp=27 B/min, EtCO2=35 mmHg, Comment=SR 12:35 PM Procedure completed at 12:35 11/15/2018 tsites 12:35 PM Did you address MARTIN flow and Dominance? Yes tsites 12:37 PM Time: 12:21LOC: 5 = Fully awake and oriented or at pre-proc level tsites 12:37 PM Time: 12:21 Patient comfortable and pain free: Yes tsites 12:37 PM Sign out completed: Radiation Dose 406.16 mGy, 49.1143 Gy/cm2 Fluoro Time: 2.1 Isovue 370 - 200ml contrast 75 ml given by Spencer Ignacio DO. Complications: None. The patient was discharged out of the electronic lab technician in stable condition. Cardiac Rehab Consult needed: NoConfirmed administered medications: Yes tsites 12:37 PM Isovue 370 - 200ml,1 Bottle(s) used. tsites 12:38 PM Arterial sheath pulled, V+Pad closure device used and was Successful tsites 12:38 PM HR=90 bpm, QQVU=809/88 mmhg, SpO2=93.0 %, Resp=21 B/min, EtCO2=36 mmHg, Comment=SR 12:39 PM Estimated Blood Loss: minimal tsites 12:39 PM Post ECG NSR tsites 12:39 PM Post Blood Pressure 136/88 tsites 12:39 PM 12:39 Post Pulses Bilateral DP & PT 2+ tsites 12:41 PM Information taught Cardiac Cath and V+ Pad tsites 12:41 PM Education needs Procedure, Plan of Care, and Safe & Effective Use of Medications tsites 12:41 PM Learning barriers :None tsites 12:41 PM Education Methods Verbal tsites 12:41 PM Education evaluation Able to repeat information tsites 12:42 PM HR=88 bpm, LJMJ=144/88 mmhg, SpO2=90.0 %, Resp=18 B/min, EtCO2=36 mmHg, Comment=SR 12:43 PM Coronary Dominance: right tsites 12:48 PM Vitals capture stopped. 12:51 PM Site status No bleeding/hematoma - Rt Groin as reported by Annabelle Andre RT (R) at 12:50 tsites 12:51 PM Opsite applied tsites 12:51 PM Report given to Kat LOW Pt taken to 2A Room #44. 12:51 tsites 12:52 PM Plavix, Effient or Brilinta given No tsites 12:52 PM Time: 12:37 Patient comfortable and pain free: Yes tsites 12:52 PM Time: 12:37LOC: 5 = Fully awake and oriented or at pre-proc level tsites 12:52 PM Delay to floor No tsites 12:52 PM Patient out of room: 12:52 tsites 12:52 PM Family not available tsites 12:52 PM Complications: None tsites Complications Complication None None Hemodynamics Pressures Site Systolic/A Wave Diastolic/V Wave Mean LV 124 13 22 LV 126 14 26 AO 131 93 110 AO 126 88 104 Post Procedure Information Blood Pressure: 136/88 mmHg Rhythm: NSR Post procedural instructions were given Closure Device Time Device Success/Fail 11/15/2018 12:46:00 PM Manual Compression Successful Site Checks Time Location Status Staff Sheath In? Note 12:50 PM Rt Groin No bleeding/hematoma Annabelle Andre RT (R) Pulses Time Site Pre-Procedure Post-Procedure Note 11/15/2018 11:18:00 AM Bilateral DP 2+ 11/15/2018 11:18:00 AM Bilateral radial 2+ 12:39:00 PM Bilateral DP & PT 2+ Updated by Madhavi Hays RT (R) on 11/15/2018 12:55:26 PM Madhavi Hays RT electronically signed on 11/15/2018 12:56:15 PM with status of Final
--- NOTE | 2018-11-15 15:01 | Internal Med Progress Note ---
Hospitalist Progress Note - Encounter Date of Encounter: 11/15/18 Time of Encounter: 14:59 - Subjective Interval History: Evaluated patient multiple times through the day. Her shortness of breath has improved. Lower extremity swelling has also improved. Patient continues to have abdominal wall swelling. Underwent left heart catheterization today. D oing well postprocedure. Somnolent. But easily awakes. - Exam Vitals: Temp Pulse Resp BP Pulse Ox 98.6 F 83 18 118/81 96 11/15/18 13:57 11/15/18 14:40 11/15/18 14:40 11/15/18 14:40 11/15/18 14:40 Exam: General: Patient is alert, mild distress, oriented x 3, morbidly obese ENT: Mucous membranes moist Respiratory: Good respiratory effort. Normal breath sounds. No wheezing or crackles. Cardiovascular: Regular rate and rhythm. s1 and s2 normal No clicks, rubs, gallops, or murmurs. Pitting pedal edema bilaterally Abdomen: Abdomen is soft, nontender. Bowel sounds are present, abdominal topete swelling present. Erythema present but blanchable. Musculoskeletal: Spontaneously moving all extremities Skin: warm, dry, intact. Neuro: Alert oriented x 3 normal cranial nerves, no focal deficits - Assessment and Plan (1) New onset of congestive heart failure Current Visit: Yes Status: Suspected Assessment and Plan: Patient underwent left heart catheterization today. Was found to have normal coronaries. Patient therefore has nonischemic cardiomyopathy. Will need outpatient follow-up and workup. Etiology unclear. Cardiology recommends cardiac MRI which can be scheduled as outpatient. For now continue Lasix intravenously as patient continues to have signs of fluid overload. Transition to oral Lasix tomorrow. Continue beta trace and PARISH inhibitor. Outpatient follow-up with cardiology. Moderate risk for complications. (2) Diabetes mellitus Current Visit: Yes Status: Chronic Assessment and Plan: A1c 7.0. Continue diabetic diet. Sliding scale insulin. (3) Hypothyroidism Current Visit: Yes Status: Chronic Assessment and Plan: TSH 15. Free T4 0.83. Continue levothyroxin. Follow-up outpatient with endocrinology for further management. (4) COPD (chronic obstructive pulmonary disease) Current Visit: Yes Status: Acute Assessment and Plan: Not in acute exacerbation. Continue bronchodilators as needed (5) DVT prophylaxis Current Visit: Yes Status: Acute Assessment and Plan: With subcutaneous heparin - Time Spent with Patient Total time spent is greater than 50% in coordination of care (as documented) at patient's floor/unit and/or counseling patient: Internal Medicine: Result - Labs CBC & Chem 7: 11/15/18 04:59 11/15/18 04:59 Labs: Short CBC 11/15/18 Range/Units 04:59 WBC 8.4 (4.3-11.1) K/mcL Hgb 13.9 (11.5-15.4) g/dL Hct 47.9 H (35.3-44.9) % Plt Count 345 (140-400) K/mcL Neutrophils # 5.1 (1.6-8.9) K/mcL BMP 11/15/18 04:59 Sodium 136 Potassium 4.7 Chloride 102 Carbon Dioxide 28 BUN 16 Creatinine 1.08 Glucose 108 H Calcium 9.3 - Impressions Impressions Abdomen/Pelvis CT 11/14/18 00:00 IMPRESSION: 1. Small patchy area of focal airspace opacity in the right middle lobe could reflect atelectasis or pneumonia. Correlate with clinical and laboratory findings. 2. Trace abdominopelvic ascites may be reactive. 3. Otherwise no acute findings in the abdomen or pelvis. 4. Mildly prominent gastrohepatic lymph node measuring up to 12 mm in short axis is of questionable clinical significance. D/ / 11/14/2018 07:24:54 Gilma Ray MD / noah Interpreting Provider: Gilma Ray MD Chest X-Ray 11/14/18 01:13 IMPRESSION: 1. Low lung volumes. 2. Mild central pulmonary vascular congestion without penny pulmonary edema. 3. Prominent cardiac silhouette. D/ / 11/14/2018 07:25:23 Gilma Ray MD / noah Interpreting Provider: Gilma Ray MD Echocardiogram 11/14/18 08:23 Impressions: LVEF 35-40%. Moderate segmental left ventricular systolic dysfunction. Mild left ventricular diastolic dysfunction. Normal right ventricular structure and function. Mild mitral regurgitation. Mild tricuspid regurgitation. Moderate pulmonic regurgitation. Mild pulmonary hypertension. Ordering physician notified via [employer]. Left Ventricular Wall Motion: Rest Echo Findings The mid inferior, basal inferior, mid anterior, basal anterior, mid inferior septal, basal inferior septal, mid anterior lateral, basal anterior lateral, mid anterior septal, mid inferior lateral, basal anterior septal and basal inferior lateral topete were hypokinetic. All other wall segments showed normal motion. Findings: Study Quality * Technically adequate exam. ECG Findings * Normal sinus rhythm. Left Ventricle * LVEF 35-40%. * Normal LV chamber size and wall thickness. * Moderate segmental left ventricular systolic dysfunction. * Mild left ventricular diastolic dysfunction. * Definity echo contrast was not used. Right Ventricle * Normal right ventricular structure and function. Left Atrium * Normal left atrial size. Right Atrium * Normal right atrial size. Interatrial Septum * Interatrial septum not well evaluated. * No evidence of PFO by color Doppler. Aortic Valve * Aortic valve not well visualized. * No aortic stenosis. * Trace aortic regurgitation. Mitral Valve * Mildly calcified mitral valve leaflets. * Moderately thickened mitral valve leaflets. * Mild mitral regurgitation. * No mitral stenosis. Tricuspid Valve * Normal tricuspid valve structure. * No tricuspid stenosis. * Mild tricuspid regurgitation. * Estimated RVSP is 46 mmHg. * Estimated RA pressure is 15 mmHg. * Mild pulmonary hypertension. Pulmonic Valve * Pulmonic valve is not well visualized. * No pulmonic stenosis. * Moderate pulmonic regurgitation. Aorta * Normally sized aortic root. Pericardium * The pericardium appears normal. IVC * The IVC is dilated. * < 50% respiratory change. 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
[2018-11-16] MEDS: *HR* Heparin 5,000 UNIT/ML VIAL SQ SCH ×2 (05:53→17:10)
[2018-11-16] MEDS: Insulin LISPRO 300 UNITS/3 ML VIAL SQ SCH ×4 (07:46→20:42)
[2018-11-16] MEDS: Aspirin Enteric Coated 81 MG Tablet PO SCH (07:49)
[2018-11-16] MEDS: Metoprolol XL (24 HR) Succ 25 MG TAB.ER.24H PO SCH (07:49)
[2018-11-16] MEDS: Furosemide 20 MG/2 ML VIAL IVP SCH (07:49)
[2018-11-16 08:51] LABS: BUN/Creatinine Ratio 18 (6-26); Blood Urea Nitrogen 17 mg/dL (6-20); Calcium 8.9 mg/dL (8.6-10.3); Carbon Dioxide 31 mEq/L (23-29); Chloride 103 mEq/L (98-107); Glucose 111 mg/dL (70-105); Osmolality,Calculated 288 (280-300); Potassium 4.5 mEq/L (3.5-5.1); Sodium 138 mEq/L (136-145); eGFR For Non-African Americans > 60 (> 60)
[2018-11-16] MEDS ORDERED: GuaiFENesin/Codeine Oral Soln 5 ML UDC PO PRN (09:25)
[2018-11-16] MEDS ORDERED: Benzonatate 100 MG CAPSULE PO PRN (09:26)
--- NOTE | 2018-11-16 09:28 | Internal Med Progress Note ---
Hospitalist Progress Note - Encounter Date of Encounter: 11/16/18 Time of Encounter: 07:50 - Subjective Interval History: 48 year old female patient with a history of hypothyroidism, diabetes who presented to the ER with complaints of worsening shortness of breath especially with exertion along with symptoms of orthopnea. Her symptoms have been going on off and on for about 3 months now. - Exam Vitals: Temp Pulse Resp BP Pulse Ox 98.4 F 72 18 115/78 97 11/16/18 07:43 11/16/18 07:43 11/16/18 07:43 11/16/18 07:43 11/16/18 07:59 Exam: General: Patient is alert, mild distress, oriented x 3, morbidly obese ENT: Mucous membranes moist Respiratory: Good respiratory effort. Normal breath sounds. No wheezing or crackles. Cardiovascular: Regular rate and rhythm. s1 and s2 normal No clicks, rubs, gallops, or murmurs. Pitting pedal edema bilaterally Abdomen: Abdomen is soft, nontender. Bowel sounds are present, abdominal topete swelling present. Erythema present but blanchable. Musculoskeletal: Spontaneously moving all extremities Skin: warm, dry, intact. Neuro: Alert oriented x 3 normal cranial nerves, no focal deficits - Assessment and Plan (1) New onset of congestive heart failure Current Visit: Yes Status: Suspected Assessment and Plan: Acute new onset systolic CHF. Patient underwent left heart catheterization and was found to have normal coronaries. Patient therefore has nonischemic cardiomyopathy. Will need outpatient follow-up and workup. Etiology unclear. Cardiology recommends cardiac MRI which can be scheduled as outpatient. Still volume overloaded today. Continue IV lasix BID, beta trace and hui inhibitor (2) Hypothyroidism Current Visit: Yes Status: Chronic Assessment and Plan: TSH 15. Free T4 0.83. Continue levothyroxin. Follow-up outpatient with endocrinology for further management. (3) Diabetes mellitus Current Visit: Yes Status: Chronic Assessment and Plan: A1c 7.0. Continue diabetic diet. Sliding scale insulin. (4) COPD (chronic obstructive pulmonary disease) Current Visit: Yes Status: Acute Assessment and Plan: Not in acute exacerbation. Continue bronchodilators as needed (5) DVT prophylaxis Current Visit: Yes Status: Acute Assessment and Plan: With subcutaneous heparin - Time Spent with Patient Total time spent is greater than 50% in coordination of care (as documented) at patient's floor/unit and/or counseling patient: Internal Medicine: Result - Labs CBC & Chem 7: 11/15/18 04:59 11/16/18 08:19 Labs: BMP 11/16/18 08:19 Sodium 138 Potassium 4.5 Chloride 103 Carbon Dioxide 31 H BUN 17 Creatinine 0.96 Glucose 111 H Calcium 8.9 Consult Discharge Plan - Plan Referrals: NONE,PCP [Primary Care Provider] - (2) Hypothyroidism Qualifiers: Hypothyroidism type: other Qualified Code(s): E03.8 - Other specified hypothyroidism (3) Diabetes mellitus Qualifiers: Diabetes mellitus type: type 2 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
[2018-11-16] MEDS: Furosemide 40 MG/4 ML VIAL IVP SCH ×2 (09:37→17:07)
[2018-11-16] MEDS: Budesonide Neb 0.25 MG/2 ML IH SCH ×2 (09:59→22:07)
[2018-11-16 21:42] LABS: Potassium 4.1 mEq/L (3.5-5.1)
[2018-11-17] MEDS: *HR* Heparin 5,000 UNIT/ML VIAL SQ SCH (06:15)
[2018-11-17 06:59] VITALS: BP 114/72
[2018-11-17] MEDS: Insulin LISPRO 300 UNITS/3 ML VIAL SQ SCH (07:34)
[2018-11-17] MEDS: Metoprolol XL (24 HR) Succ 25 MG TAB.ER.24H PO SCH (07:38)
[2018-11-17] MEDS: Aspirin Enteric Coated 81 MG Tablet PO SCH (07:38)
[2018-11-17] MEDS: Furosemide 40 MG/4 ML VIAL IVP SCH (07:38)
--- NOTE | 2018-11-17 09:29 | Discharge Summary ---
Date of Encounter: 11/17/18 Time of Encounter: 09:30 - Discharge Diagnosis (1) New onset of congestive heart failure Priority: Primary Status: Suspected Assessment and Plan: 48 year old female patient with a history of hypothyroidism, diabetes who presented to the ER with complaints of worsening shortness of breath especially with exertion along with symptoms of orthopnea. Her symptoms have been going on off and on for about 3 months now. She has been diagnosed with multiple episodes of bronchitis and pneumonia. She has completed treatment for that but continued to feel worse. Over the past 3 weeks she has noted worsening swelling in her legs going up into her lower abdomen. She was assessed with acute new onset systolic CHF. Patient underwent left heart catheterization and was found to have normal coronaries. Patient therefore has nonischemic cardiomyopathy. She improved with diuresis and will need outpatient follow-up and workup. Etiology unclear. Cardiology recommends cardiac MRI which can be scheduled as outpatient. 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 Mary is a 48 year old female - Time Spent with Patient Total time spent providing and/or coordinating discharge services: - Discharge Medications Prescriptions: Aspirin Enteric Coated [Aspirin EC] 81 mg PO DAILY #30 tablet.dr Furosemide [Lasix] 40 mg PO BID #60 tab GuaiFENesin ER [Mucinex] 1,200 mg PO BID #60 tbbp.12hr Lisinopril [Zestril] 2.5 mg PO DAILY #30 tablet Metoprolol XL (24 HR) Succ [Toprol Xl] 25 mg PO DAILY #30 tab.er.24h Home Medications: Albuterol Sulfate [Albuterol Inhaler] 2 puff IH Q4HR PRN #1 hfa.aer.ad 08/04/18 [Rx] Budesonide Neb [Pulmicort Neb] 0.25 mg IH BID 11/14/18 [History] Levothyroxine [Synthroid] 175 mcg PO DAILY 11/14/18 [History] Metformin HCl [Metformin HCl ER] 500 mg PO QPM 11/14/18 [History] Montelukast [Singulair] 10 mg PO DAILY 11/14/18 [History] Aspirin Enteric Coated [Aspirin EC] 81 mg PO DAILY #30 tablet.dr 11/17/18 [Rx] Furosemide [Lasix] 40 mg PO BID #60 tab 11/17/18 [Rx] GuaiFENesin ER [Mucinex] 1,200 mg PO BID #60 tbbp.12hr 11/17/18 [Rx] Lisinopril [Zestril] 2.5 mg PO DAILY #30 tablet 11/17/18 [Rx] Metoprolol XL (24 HR) Succ [Toprol Xl] 25 mg PO DAILY #30 tab.er.24h 11/17/18 [Rx] Allergies/Adverse Reactions: Allergy/AdvReac Type Severity Reaction Status Date / Time levofloxacin [From Levaquin] AdvReac Muscle Pain Verified 08/04/18 19:29 Date of admission: 11/14/18 04:20 Primary care physician: PCP NONE Consults: 11/14/18 08:21 Consult to Cardiac Rehabilitation-Phase1 [CONS] Routine Comment: Reason for Consult: heart failure Call Completed: Yes Consult to Nurse Navigator [CONS] Routine Comment: 11/14/18 16:54 Consult to Cardiology [CONS] Routine Comment: Consulting Provider: Cardiology Kelsey Reason for Consult: CHF/ Cardiomyopathy Time Notified: 16:55 Call Completed: Yes - Constitutional Vitals: Temp Pulse Resp BP Pulse Ox 97.9 F 81 20 114/72 93 11/17/18 06:36 11/17/18 06:36 11/17/18 06:36 11/17/18 06:36 11/17/18 07:43 General appearance: Present: cooperative, mild distress, A&O X 3, pleasant, answers questions appropriately Exam: General: Patient is alert, mild distress, oriented x 3, morbidly obese ENT: Mucous membranes moist Respiratory: Good respiratory effort. Normal breath sounds. No wheezing or crackles. Cardiovascular: Regular rate and rhythm. s1 and s2 normal No clicks, rubs, gallops, or murmurs. Pitting pedal edema bilaterally Abdomen: Abdomen is soft, nontender. Bowel sounds are present, abdominal topete swelling present. Erythema present but blanchable. Musculoskeletal: Spontaneously moving all extremities Skin: warm, dry, intact. Neuro: Alert oriented x 3 normal cranial nerves, no focal deficits - Patient Status Disposition: Home, Self-Care Condition: Good - Discharge Instructions Instructions: Metoprolol (By mouth), Lisinopril (By mouth), Furosemide (By m outh), Aspirin (By mouth), Guaifenesin (By mouth), Pacemaker (DC), Chronic Obstructive Pulmonary Disease (DC) Follow Up With: Svitlana Tan MD [Non-Partnered Physician] - 11/23/18 1:30 pm (Office will call you with an appointment date and time. Thank you!) Marianela Bowman, GLOVE EXAMINER [Advanced Practice Nurse] - (Office number is [phone]. Office is closed until 2pm today 2018. Voicemail was left for office to call patient with an appointment date and time. Thank you!)
--- NOTE | 2018-11-17 10:10 | Electrocardiograph Report ---
[address] [place], [place] [address] Test Date: 2018-11-14 Pat Name: Maya Mary Department: EXAM4 Room: 2A44 Gender: F Acute Care Nurse Practitioner: : 1970 Requested By: Ferdinand Henriquez Order Number: [id number] Reading MD: Tyrel Grant Measurements Intervals [place] Rate: 94 P: 75 [place]: 141 QRS: 67 QRSD: 89 T: 56 QT: 403 QTc: 504 Interpretive Statements Sinus rhythm Biatrial enlargement Borderline prolonged QT interval Electronically Signed On 11-17-2018 10:08:55 EST by Tyrel Grant
[2018-11-17] MEDS: Budesonide Neb 0.25 MG/2 ML IH SCH (11:03)
== END 2018-11-17 11:59 | disposition home or self-care (01) ==
LOC: EMEROOARM 22:41 → 2ANU 22:41
PROVIDERS: ADMIT Family Medicine; ATTEND Family Medicine